=== PATIENT | female | born 1985 | race Two or more races ===

== ENCOUNTER → 2024-01-21 | Outpatient (CLI) | payer MEDICAID, SELFPAY ==
[2024-01-21 17:15] LABS: Free T4 (Free Thyroxine) 1.08 ng/dL (0.89-1.76); Thyroid Stimulating Hormone 2.55 uIU/mL (0.55-4.78)
== END | disposition home or self-care (01) ==
LOC: COPL 15:36
PROVIDERS: PCP Internal Medicine Endocrinology, Diabetes & Metabolism; Referring Provider Internal Medicine Endocrinology, Diabetes & Metabolism; Visit Provider Internal Medicine Endocrinology, Diabetes & Metabolism
DX: E03.9 Hypothyroidism, unspecified (principal)
CPT/HCPCS: 36415; 84439; 84443

== ENCOUNTER → 2024-01-22 | Outpatient (BNVA) | payer MEDICAID, SELFPAY | END | disposition home or self-care (01) | PROVIDERS: PCP Nurse Practitioner Family; Referring Provider Nurse Practitioner Family; Visit Provider Nurse Practitioner Family | DX: F32.A Depression, unspecified (principal); F41.9 Anxiety disorder, unspecified; G47.00 Insomnia, unspecified; F40.9 Phobic anxiety disorder, unspecified | CPT/HCPCS: 99213 ==

== ENCOUNTER → 2024-02-29 | Outpatient (BNVA) | payer MEDICAID, SELFPAY | END | disposition home or self-care (01) | PROVIDERS: PCP Nurse Practitioner Family; Referring Provider Nurse Practitioner Family; Visit Provider Nurse Practitioner Family | DX: Z30.09 Encounter for other general counseling and advice on contraception (principal) | CPT/HCPCS: 99214 ==

== ENCOUNTER → 2024-03-15 | Outpatient (BNVA) | payer MEDICAID, SELFPAY | END | disposition home or self-care (01) | PROVIDERS: PCP Nurse Practitioner Family; Referring Provider Nurse Practitioner Family; Visit Provider Nurse Practitioner Family | DX: Z00.01 Encounter for general adult medical examination with abnormal findings (principal); F32.A Depression, unspecified; F41.9 Anxiety disorder, unspecified; E03.9 Hypothyroidism, unspecified; L80 Vitiligo; E66.3 Overweight; Z68.25 Body mass index [BMI] 25.0-25.9, adult; Z13.1 Encounter for screening for diabetes mellitus; Z13.220 Encounter for screening for lipoid disorders; Z11.3 Encounter for screening for infections with a predominantly sexual mode of transmission; D22.9 Melanocytic nevi, unspecified | CPT/HCPCS: 99215 ==

== ENCOUNTER → 2024-04-01 | Outpatient (BNVA) | payer MEDICAID, SELFPAY | END | disposition home or self-care (01) | PROVIDERS: PCP Nurse Practitioner Family; Referring Provider Nurse Practitioner Family; Visit Provider Nurse Practitioner Family | DX: Z71.2 Person consulting for explanation of examination or test findings (principal); E03.9 Hypothyroidism, unspecified; E78.5 Hyperlipidemia, unspecified; E55.9 Vitamin D deficiency, unspecified | CPT/HCPCS: 99212; G0463 ==

== ENCOUNTER 2024-07-28 12:56 | Emergency (ER) | payer MEDICAID, SELFPAY ==
[2024-07-28 13:39] VITALS: BP 148/87; PULSE 88; RESP 18; TEMP 36.9; O2SAT 99; BMI 25.1
--- NOTE | 2024-07-28 13:39 | PD.EDNEURO ---
Neuro Symptoms Deficit-RME/HPI General Chief Complaint: Eye Problems Stated Complaint: Eye twitching, left cheek numbness Time Seen by Provider: 07/28/24 13:39 Arrival date/time: 07/28/24 12:56 RME / HPI RME / HPI Narrative: DR. MONTGOMERY MAIN ED EVALUATION: This section includes all my notes and documentations, including HPI, PE, and ED course.? Wei Montgomery MD HPI: 39 year old female presents to the Emergency Department with complaints of left facial numbness and tingling with left eye twitching for a week. She states she has been under a lot stress; she is working medical collections and going to school. 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 No speech or visual impairment. No loss of power in the arms or legs. No other complaints. ROS: All negative except as documented in HPI. Physical Exam: General:? Alert and oriented.? No acute distress.?? Eyes:? Conjunctivae and lids clear.? EOMI.? PERRL. ENT:? No nasal congestion.? Pharynx normal.? Tympanic membrane normal bilaterally.??? Neck:? Supple.? No carotid bruit.? No JVD.?? Heart:? RRR.? Lungs:? No respiratory distress.? Good air movement.? No rhonchi, wheezing, rales.?? Skin:? Warm and dry.?? Neuro:? Alert and oriented X 3.? Cranial Nerves II-XII grossly intact.? No peripheral motor deficits. Patient requested medications for Rogel's palsy. Declined diagnostic tests, including head CT. Discussed potential risks, including missing serious conditions, including stroke. Patient understood but still declined. We couldn't change her mind. Prescribed prednisone and Valtrex and recommended outpatient follow-up Based on my best medical judgment, made decision no further evaluation or treatment indicated at this time.? Patient understands and agrees to the discharge instructions customized and printed, see below. Discharge Instructions from Dr. Montgomery printed for you: 1. Since you declined head CT, it was not performed. 2. Since you started with similar symptoms when you had Rogel's palsy in the past, take prednisone and Valtrex as prescribed. 3. See a private doctor on 07/29/2024 for recheck and further care, including second opinion. 4. Read attached handouts on Rogel's palsy and stroke and TIA. Seek immediate medical care with worsening, speech or visual impairment, loss of power in the arms or legs, or with any concerns. Wei Montgomery MD Related Data Previous Rx's ?Medication ?Instructions ?Recorded levothyroxine 75 mcg capsule 75 mcg PO QDAY #30 caps 12/29/23 hydroxyzine HCl 50 mg tablet 50 mg PO QHS #30 tabs 07/28/24 paroxetine HCl 20 mg tablet (Paxil) 20 mg PO QDAY #90 tabs 07/28/24 valacyclovir 1 gram tablet 1,000 mg PO BID 5 days #10 tabs 07/28/24 (Valtrex) Allergies Allergy/AdvReac Type Severity Reaction Status Date / Time codeine Allergy Severe SOB, Verified 07/28/24 15:50 PALPITATIONS Course Quality Measures none Vital Signs Vital signs: Vital Signs Temperature 98.5 F 07/28/24 13:39 Pulse Rate 88 07/28/24 13:39 Respiratory Rate 18 07/28/24 13:39 Blood Pressure 148/87 H 07/28/24 13:39 Pulse Oximetry (%) 99 07/28/24 13:39 Oxygen Delivery Method Room Air 07/28/24 13:39 Neuro Symptoms / Deficit MDM Narrative MDM Narrative:: I, Justine Jeff am scribing for and in the presence of Dr. Montgomery. Patient data External records reviewed:: [facility] previous records Clinical information provided by:: patient Social determinants that could affect healthcare access:: none Patient has the following chronic illnesses:: Rogel's Palsy 2 years ago. How is presenting disease/condition affected by chronic disease/condition?: exacerbated by Evaluation data The following diagnostics were reviewed and interpreted by me:: other (specify) (none) Lab and/or radiology exams considered but not ordered:: Head CT but patient refused it. Interpretation Summary: Patient declined diagnostic tests. Medications / Prescriptions Medications or Prescriptions considered but not ordered:: none Medication administrations:: none Consultations Consultation(s) initiated? (list below): No Diagnosis Neuro Differential Diagnosis: convulsions, peripheral neuropathy, cerebrovascular accident, transient cerebral ischemia and other (Rogel's Palsy, psychogenic) Most likely diagnosis given after review of the tests above:: Left facial numbness with unclear etiology. Admission Indicated Admission indicated?: not indicated Explain why admission is indicated or not indicated:: Patient declined diagnostic tests. Admission Request Was there a request for admission?: No Disposition Plan Disposition Plan: Discharge Discharge Attestation Discharge Attestation: The patient and all family members were given an opportunity to ask questions and understood the discharge instructions. Discharge instructions specifically effects, indications for sooner follow up or return to the emergency department, and the expected course of current diagnosis. Patient condition: Stable Discharge Plan Plan Patient Disposition: HOME (Self Care) Prescriptions/Referrals Prescriptions/Med Rec: New valacyclovir [Valtrex] 1 gram tablet 1,000 mg PO BID 5 Days Qty: 10 0RF No Action levothyroxine 75 mcg capsule 75 mcg PO QDAY Qty: 30 0RF paroxetine HCl [Paxil] 20 mg tablet 20 mg PO QDAY Qty: 90 1RF hydroxyzine HCl 50 mg tablet 50 mg PO QHS Qty: 30 2RF Problem List Clinical Impression: Left facial numbness Patient/Caregiver Discharge Instructions Discharge Activity: activity as tolerated Education Materials: ED Rogel's Palsy, ED Stroke, Completed, ED TIA: Transient Ischemic Attack Additional Instructions: Discharge Instructions from Dr. Montgomery printed for you: 1. Since you declined head CT, it was not performed. 2. Since you started with similar symptoms when you had Rogel's palsy in the past, take prednisone and Valtrex as prescribed. 3. See a private doctor on 07/29/2024 for recheck and further care, including second opinion. 4. Read attached handouts on Rogel's palsy and stroke and TIA. Seek immediate medical care with worsening, speech or visual impairment, loss of power in the arms or legs, or with any concerns. Print Language: Albanian Stand Alone Forms: Pam Award Info., Patient Portal Info Letter
== END 2024-07-28 14:24 | disposition home or self-care (01) ==
LOC: SERX 14:07
PROVIDERS: Emergency Provider Emergency Medicine; PCP Nurse Practitioner Family
DX: R20.0 Anesthesia of skin (principal)
CPT/HCPCS: 99281

== ENCOUNTER → 2024-07-28 | Outpatient (BNVA) | payer MEDICAID, SELFPAY | END | disposition home or self-care (01) | PROVIDERS: PCP Nurse Practitioner Primary Care; Referring Provider Nurse Practitioner Primary Care; Visit Provider Nurse Practitioner Primary Care | DX: F41.1 Generalized anxiety disorder (principal); R20.0 Anesthesia of skin | CPT/HCPCS: 99213 ==

== ENCOUNTER → 2024-08-01 | Outpatient (BNVA) | payer MEDICAID, SELFPAY | END | disposition home or self-care (01) | PROVIDERS: PCP Nurse Practitioner Primary Care; Referring Provider Nurse Practitioner Primary Care; Visit Provider Nurse Practitioner Primary Care | DX: R20.0 Anesthesia of skin (principal); F41.1 Generalized anxiety disorder; E03.9 Hypothyroidism, unspecified; E78.5 Hyperlipidemia, unspecified | CPT/HCPCS: 99214 ==

== ENCOUNTER → 2024-08-15 | Outpatient (BNVA) | payer MEDICAID, SELFPAY | END | disposition home or self-care (01) | PROVIDERS: PCP Nurse Practitioner Primary Care; Referring Provider Nurse Practitioner Primary Care; Visit Provider Nurse Practitioner Primary Care | DX: E03.9 Hypothyroidism, unspecified (principal); E78.5 Hyperlipidemia, unspecified | CPT/HCPCS: 99212; G0463 ==

== ENCOUNTER → 2024-11-22 | Outpatient (CLI) | payer MEDICAID, SELFPAY ==
[2024-11-22 11:46] LABS: Free T4 (Free Thyroxine) 1.38 ng/dL (0.89-1.76); Thyroid Stimulating Hormone 3.39 uIU/mL (0.55-4.78)
== END | disposition home or self-care (01) ==
PROVIDERS: PCP Nurse Practitioner Family; Referring Provider Internal Medicine Endocrinology, Diabetes & Metabolism; Visit Provider Internal Medicine Endocrinology, Diabetes & Metabolism
DX: E03.9 Hypothyroidism, unspecified (principal)
CPT/HCPCS: 36415; 84439; 84443

== ENCOUNTER → 2024-12-08 | Outpatient (BNVA) | payer MEDICAID, SELFPAY | END | disposition home or self-care (01) | PROVIDERS: PCP Nurse Practitioner Family; Referring Provider Nurse Practitioner Family; Visit Provider Nurse Practitioner Family | DX: T78.40XA Allergy, unspecified, initial encounter (principal) | CPT/HCPCS: 96372; 99213; J3301 ==